=== PATIENT | male | born 1980 | race Caucasian/White ===

== ENCOUNTER 2020-09-20 18:07 | Emergency (ER) | payer OTHER ==
[~2020-09-20 18:07] MED LIST: LEVAQUIN500 MG PO; MIRALAX 238GM238 GM PO; NAPROSYN250 MG PO; NAPROSYN375 MG PO; NORCO 5-325 TA1 EACH PO; PRILOSEC20 MG PO; VIBRAMYCIN100 MG PO
[2020-09-20] MEDS ORDERED: CEPHALEXIN500 MG PO (22:19)
[2020-09-20] MEDS ORDERED: BACTRIM DS TAB1 EACH PO (22:19)
[2020-09-20] MEDS ORDERED: NORCO 5-325 TA1 EACH PO (22:19)
== END 2020-09-20 22:47 | disposition home or self-care (01) ==
LOC: FER 18:07
DX: L03.012 Cellulitis of left finger (principal); J45.909 Unspecified asthma, uncomplicated
CPT/HCPCS: 99283; J0696